=== PATIENT | male | born 1985 | race Caucasian/White ===

== ENCOUNTER 2019-06-30 11:27 | Outpatient (CLI) | payer OTHER ==
[2019-06-30] MEDS ORDERED: RABIES VACCINE (PCEC) 2.5 UNIT KIT IM ONE (12:15)
== END 2019-06-30 12:40 | disposition home or self-care (01) ==
LOC: PEDOP 11:27
PROVIDERS: ATTEND Emergency Medicine
DX: Z20.3 Contact with and (suspected) exposure to rabies (principal)
CPT/HCPCS: 90471; 90675